=== PATIENT | male | born 1965 | race Caucasian/White ===

== ENCOUNTER 2024-08-27 10:21 | Outpatient (REF) | payer OTHER, SELFPAY ==
--- NOTE | ~2024-08-27 | US_ITS ---
CLINICAL HISTORY: PVD Arterial duplex ultrasound bilateral lower extremity Comparison: None Findings: Right peroneal artery is not seen. Otherwise continuous, pulsatile flow with normal waveforms from common femoral arteries through the posterior tibial and dorsalis pedis arteries. No focal stenosis, aneurysm or occlusion identified. Velocities are within normal range. IMPRESSION: 1. Possible right peroneal artery occlusion. 2. Otherwise, no evidence of arterial insufficiency to the bilateral lower extremities. This document has been electronically signed by: Bárbara Rajput MD on 08/27/2024 14:30:05
== END 2024-08-27 10:22 | disposition home or self-care (01) ==
LOC: HO.US 10:21
PROVIDERS: PCP Internal Medicine; Visit Provider Psychiatry & Neurology Neurology
DX: I73.9 Peripheral vascular disease, unspecified (principal)
CPT/HCPCS: 93925

== ENCOUNTER → 2024-08-27 10:34 | Outpatient (BNV) | payer OTHER, SELFPAY | PROVIDERS: PCP Internal Medicine; Visit Provider Radiology Diagnostic Radiology | DX: I73.9 Peripheral vascular disease, unspecified (principal) | CPT/HCPCS: 93925 ==

== ENCOUNTER 2024-10-15 12:58 | Outpatient (AMB) | payer OTHER, SELFPAY ==
--- OUTSIDE RECORDS SUMMARY | 2024-10-15 13:29 | XMS_ITS | Clinical Summary ---
Author Organization 175 [facility] Address [address] [place] [address] Phone Care Team Providers Care Biology Laboratory Assistant Name Role Phone Josefina Tamayo MD Primary Care Provider [phone] Allergies No known active allergies Medications aspirin 81 mg EC tablet Take 1 tablet (81 mg total) by mouth 1 (one) time each day. 08/13/2019 Active atorvastatin (LIPITOR) 40 mg tablet Take 1 tablet (40 mg total) by mouth 1 (one) time each day. 05/28/2023 Active pen needle, diabetic 29 gauge x 1/2 needle 12/16/2021 Active blood-glucose meter misc Use daily for testing glucose. 08/13/2019 Active econazole nitrate 1 % cream Apply locally twice a day 10/12/2022 04/22/19 26 Active glucose blood test strip Inject 1 each into the skin. 08/13/2019 Active hydrocortisone 2.5 % cream 08/17/2022 Active insulin glargine (Lantus Solostar U-100 Insulin) 100 unit/mL (3 mL) injection pen Inject under the skin. 07/12/2021 Active insulin NPH human isophane (NovoLIN N NPH U-100 Insulin) 100 unit/mL injection 07/12/2021 Active FREESTYLE LANCETS MISC 1 lancet twice a day for checking sugar,intrade rmal 08/13/2019 Active lisinopriL (PRINIVIL,ZESTR IL) 20 mg tablet Take 1 tablet (20 mg total) by mouth 1 (one) time each day. 12/20/2022 Active metFORMIN XR (GLUCOPHAGE-XR) 750 mg 24 hr tablet Take 1 tablet (750 mg total) by mouth 2 (two) times a day. 08/23/2020 Active amLODIPine (NORVASC) 5 mg tablet Take 1 tablet (5 mg total) by mouth 1 (one) time each day. 07/30/2023 Active blood sugar diagnostic (FreeStyle Lite Strips) test strip Place 1 each on the skin daily. 03/21/2023 Active senna-docusate (PERICOLACE) 8.6-50 mg per tablet Take 1 tablet by mouth 1 (one) time each day. 90 each 2 02/26/2024 Active Ozempic 0.25 mg or 0.5 mg (2 mg/3 mL) injection pen Inject 0.5 mg under the skin. 11/28/2023 Active diclofenac (CATAFLAM) 50 mg tablet 05/03/2024 Active Active Problems Problem Noted Date Diagnosed Date Chronic midline low back pain with bilateral sci atica 10/06/2021 Assessment & Plan (05/07/2024 12:48 PM EST): Mr. Sandoval continues to complain of low back pain, with left buttock pain and bilateral lateral and posterior calf pain. He has occultly with the right upper extremity and always has to lead with the left leg when climbing stairs. He does admit that the right leg is better than it was last time I saw him. On exam today he is neurologically intact with good strength to confrontation including the right iliopsoas. I had previously reviewed his MRI of the lumbar spine with Dr. Eason who said that there was nothing that she could do surgically that would be likely to make him better. 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 I told him that this was likely related to chronic degenerative changes and his diabetes or hypertension but that there was no role for surgery. He asked what could be done and I did say that he might get some benefit from seeing neurology in consultation. Dr. Strinegr performed his EMG and we will refer Mr. Sandoval to him. He can follow up with us in the future on an as needed basis. Assessment & Plan (03/05/2024 3:06 PM EST): Mr. Sandoval describes 5 years of low back pain in 2 to 3 years of leg pain. He has pain in the left buttock and in both calves both laterally and posteriorly. He takes diclofenac with some relief. He has a particularly difficult time climbing stairs, having to lead with the left while leaning on his right side and pulling himself up with the banister. He does have some weakness in the right iliopsoas graded at 4- out of 5. His MRI of the lumbar spine shows disc desiccation and loss of disc height at L3-4 with effacement of the right lateral recess and possible mass effect on the budding right L4 nerve root. There was also bilateral foraminal stenosis. There were mild degenerative changes in the lower lumbar spine. At this point he is going to go for chiropractic treatment and he did except the prescription for physical therapy. I counseled him on weight loss and explained that that would impact his low back health. We talked about acupuncture and yoga as other reasonable conservative modalities. I told him I would call him after reviewing his MRI with Dr. Eason. Diabetes mellitus type 2, un complicated ([facility] V24, [facility] V28) 12/21/2017 Hyperlipidemia 12/21/2017 Hypertension 10/19/2017 Obesity, Class III, BMI 40-49.9 (morbid obesity) 10/19/2017 Vitamin D deficiency 09/06/2017 Encounters Date Type Department Care Team Description 10/15/2024 Lab Requisition [facility] - Main Lab [address] [facility] [place] [address] Shaheed Cavanaugh MD Benign prostatic hyperplasia with lower urinary tract symptoms 09/15/2024 Telephone Internal Medicine - [place] [address] [facility] [address] [place] [address] Josefina Tamayo MD [place]: Lab results 09/04/2024 7:27 AM EDT - 09/04/2024 11:59 PM EDT Hospital Encounter [facility] Ultrasound [address] [place] [id number] Right upper quadrant abdominal swelling, mass and lump Discharge Disposition: Home or Self Care 08/26/2024 3:00 PM EDT Office Visit Internal Medicine - [place] [address] [facility] [address] [place] [address] Josefina Tamayo MD Right upper quadrant abdominal swelling, mass and lump (Primary Dx); Primary hypertension; Type 2 diabetes mellitus without complication, with long-term current use of insulin ([facility] V24, [facility] V28); Mixed hyperlipidemia 08/15/2024 Telephone Internal Medicine - [place] [address] [facility] [address] [place] [address] Anabelle Avery RN from Last 3 Months Surgical History Surgery Date Site/Laterality Comments ABDOMINAL SURGERY PROCEDURE: HISTORICAL ABDOMINAL SURGERY GALLBLADDER SURGERY KIDNEY STONE SURGERY Medical History Medical History Date Comments Diabetes mellitus type 2, uncomplicated ([facility] V24, [facility] V28) 12/21/2017 DX:Diabetes mellitus type 2, uncomplicated ([facility]) Hyperlipidemia 12/21/2017 DX:Hyperlipidemi a Hypertension 10/19/2017 DX:Hypertension Obesity, Class III, BMI 40-4 9.9 (morbid obesity) 10/19/2017 DX:Obesity, Class III, BMI 4 0-49.9 (morbid obesity) ([facility]) Vitamin D deficiency 09/06/2017 DX:Vitamin D deficiency Kidney stones Family History Medical History Relation Name Comments Stroke Brother Relation Name Status Comments Brother Social History Tobacco Use Types Packs/Day Years Used Date Smoking Tobacco: Never Smokeless Tobacco: Never Sex and Gender Information Value Date Recorded Sex Assigned at Male 08/27/2024 2:41 PM EDT Legal Sex Male 11:48 AM EST Gender Identity Male 08/27/2024 2:41 PM EDT Sexual Orientation Straight 08/27/2024 2: 41 PM EDT Obstetrics History Last Filed Vital Signs Vital Sign Reading Time Taken Comments Blood Pressure 128/66 08/26/2024 3:27 PM EDT Pulse 82 08/26/2024 3:27 PM EDT Temperature 36.2 C (97.1 F) 08/26/2024 3:27 PM EDT Respiratory Rate - - Oxygen Saturation 96% 08/26/2024 3:27 PM EDT Inhaled Oxygen Concentration - - Weight 136 kg (300 lb) 08/26/2024 3:27 PM EDT Height 182.9 cm (6') 05/07/2024 10:48 AM EST Body Mass Index 40.69 05/07/2024 10:48 AM EST Plan of Treatment Upcoming Encounters Date Type Department Care Team (Late st Contact Info) Description 01/19/2025 11:30 AM EDT Office Visit Internal Medicine - [place] [address] [facility] [address] [place] [address] Josefina Tamayo MD [address] [facility] [address] [place] [address] Health Maintenance Due Date Last Done Comments Diabetes: Annual Foot Exam 1974 DTaP,Tdap,and Td Vaccines (1 - Tdap) 12/15/1983 Hepatitis B Vaccines (1 of 3 - 19+ 3-dose series) 12/15/1983 Pneumococcal Vaccine: 50+ Years (1 of 2 - PCV) 12/15/1983 Pneumococcal Vaccine: Pediatrics (0 to 5 Years) and At-Risk Patients (6 to 64 Years) (1 of 2 - PCV) 12/15/1983 Zoster Vaccines (1 of 2) 2014 Colorectal Cancer Screening: Colonoscopy 03/25/2022 Depression Screening 03/25/2022 HIV Screening 03/25/2022 Hepatitis C Screening 03/25/2022 Social Influencers of Health Screening 03/25/2022 COVID-19 Vaccine ( season) 2023 Diabetes: Annual Retina Eye Exam 03/07/2024 03/07/2023, 03/07/2023 Influenza Vaccine (Season Ended) 2024 Diabetes: Blood Sugar Control Test (HGBA1C) 02/28/2025 08/28/2024, 08/23/2023, 10/20/2022, Additional history exists Diabetes: Annual Urine Albumin-Creatinine Ratio (uACR) 08/28/2025 08/28/2024, 08/23/2023, 01/26/2022, Additional history exists Diabetes: Annual GFR (Glomerular Filtration Rate) 08/28/2025 08/28/2024, 02/28/2024, 08/23/2023 Hypertension/CHF/CAD Annual BMP Blood Test 08/28/2025 08/28/2024, 02/28/2024, 08/23/2023 Cholesterol Screening (Lipid Panel) 08/28/2029 08/28/2024, 01/26/2022 RSV Immunization Adult Patients (1 - 1-dose 75+ series) 12/15/2039 HIB Vaccines Aged Out No longer eligi ble based on patient's age to complete this topic HPV Vaccines Aged Out No longer eligi ble based on patient's age to complete this topic Hepatitis A Vaccines Aged Out No long er eligible based on patient's age to complete this topic IPV Vaccines Aged Out No longer eligi ble based on patient's age to complete this topic MMR Vaccines Aged Out No longer eligi ble based on patient's age to complete this topic Meningococcal ACWY Vaccine Aged Out N o longer eligible based on patient's age to complete this topic Meningococcal B Vaccine Aged Out No l onger eligible based on patient's age to complete this topic RSV Immunization Patients Under 20 months Aged Out No longer eligible based on patient's age to complete this topic Varicella Vaccines Aged Out No longer eligible based on patient's age to complete this topic Procedures Procedure Name Priority Date/Time Associated Diagnosis Comments US ABDOMEN LIMITED Routine 09/04/2024 7: 46 AM EDT Right upper quadrant abdominal swelling, mass and lump CBC WITH AUTO DIFFERENTIAL Routine 08/28/2024 9:42 AM EDT Primary hypertension COMPREHENSIVE METABOLIC PANEL Routine 08/28/2024 9:42 AM EDT Primary hypertension CBC AND DIFFERENTIAL Routine 08/28/2024 9:42 AM EDT Primary hypertension HEMOGLOBIN A1C Routine 08/28/2024 9:42 AM EDT Primary hypertension Right upper quadrant abdominal swelling, mass and lump Type 2 diabetes mellitus without complication, with long-term current use of insulin ([facility] V24, [facility] V28) Mixed hyperlipidemia VITAMIN B12 Routine 08/28/2024 9:42 AM EDT Primary hypertension Right upper quadrant abdominal swelling, mass and lump Type 2 diabetes mellitus without complication, with long-term current use of insulin ([facility] V24, [facility] V28) Mixed hyperlipidemia LIPID PANEL WITH REFLEX TO DIRECT LDL Routine 08/28/2024 9:42 AM EDT Primary hypertension Right upper quadrant abdominal swelling, mass and lump Type 2 diabetes mellitus without complication, with long-term current use of insulin ([facility] V24, [facility] V28) Mixed hyperlipidemia MICROALBUMIN CREATININE URINE RATIO Routine 08/28/2024 9:42 AM EDT Primary hypertension Right upper quadrant abdominal swelling, mass and lump Type 2 diabetes mellitus without complication, with long-term current use of insulin ([facility] V24, [facility] V28) Mixed hyperlipidemia EXTERNAL ULTRASOUND REPORT 08/27/2024 EXTERNAL NEUROLOGY REPORT Routine 07/17/2024 1:16 PM EDT DIABETES EYE EXAM Routine 03/07/2023 from Last 3 Months or Most Recently Relevant to Health Maintenance Results * US Abdomen Limited (09/04/2024 7:46 AM EDT) Anatomical Region Laterality Modality Body Ultrasound 09/05/2024 8:19 AM EDT Impressions 09/05/2024 8:21 AM EDT Limited study. No large abnormality demonstrated. However, further evaluation may be appropriate if there are suspicious findings on physical exam -------- FINAL REPORT -------- Dictated By: Xavier Clancy Dictated Date: 09/05/2024 08:19 ET Assigned Physician: Xavier Clancy Reviewed and Electronically Signed By: Xavier Clancy Signed Date: 09/05/2024 08:21 ET Workstation ID: [id number] Transcribed By: Self Edit Transcribed Date: 09/05/2024 08:19 ET Narrative 09/05/2024 8:21 AM EDT EXAMINATION: US , RIGHT ABDOMINAL WALL CLINICAL INFORMATION: Palpable abnormality right upper quadrant. COMPARISON: None. TECHNIQUE: High-frequency linear transducer examination with attention to the area of clinical concern The examination is targeted to the area of palpable concern in the right upper quadrant abdominal wall. FINDINGS: QUALITY: Significantly limited exam. Specifically habitus limits assessment. The abdominal wall fascia and bowel are not well evaluated. The integrity of the abdominal wall cannot be determined. There is no suspicious mass. No peristalsing bowel. No suspicious collection. Procedure Note Xavier Clancy MD - 09/05/2024 EXAMINATION: US , RIGHT ABDOMINAL WALL CLINICAL INFORMATION: Palpable abnormality right upper quadrant. COMPARISON: None. TECHNIQUE: High-frequency linear transducer examination with attention to the area ofclinical concern The examination is targeted to the area of palpable concern in the rightupper quadrant abdominal wall. FINDINGS: QUALITY: Significantly limited exam. Specifically habitus limits assessment. The abdominal wall fascia andbowel are not well evaluated. The integrity of the abdominal wall cannotbe determined. There is no suspicious mass. No peristalsing bowel. No suspicious collection. IMPRESSION: Limited study. No large abnormality demonstrated. However, further evaluation may be appropriate if there are suspiciousfindings on physical exam -------- FINAL REPORT -------- Dictated By: Xavier Clancy Dictated Date: 09/05/2024 08:19 ET Assigned Physician: Xavier Clancy Reviewed and Electronically Signed By: Xavier Clancy Signed Date: 09/05/2024 08:21 ET Workstation ID: [id number] Transcribed By: Self Edit Transcribed Date: 09/05/2024 08:19 ET us Josefina Tamayo MD [facility] US PROCEDURES Final Result * Lipid panel with reflex to direct LDL (08/28/2024 9:42 AM EDT) Cholesterol 103 0 - 200 mg/dL LAB CHEMISTRY METHOD 08/28/2024 2:05 PM EDT [facility] Triglycerides 111 0 - 150 mg/dL LAB CHEMISTRY METHOD 08/28/2024 2:05 PM EDT [facility] HDL 42 >=40 mg/dL LAB CHEMISTRY METHOD 08/28/2024 2:05 PM EDT [facility] LDL Calculated 39 0 - 100 mg/dL LAB CHEMISTRY METHOD 08/28/2024 2:05 PM T [facility] VLDL Cholesterol Gallo 22.2 mg/dL LAB CHEMISTRY METHOD 08/28/2024 2:05 PM EDT [facility] Non HDL Chol. (LDL+VLDL) 61 <145 mg/dL LAB CHEMISTRY METHOD 08/28/2024 2:05 PM EDT [facility] Chol/HDL Ratio 2.5 0.0 - 4.4 LAB CHEMISTRY METHOD 08/28/2024 2:05 PM EDT [facility] Blood Venous blood specimen / Unknown Venipuncture / Unknown 08/28/2024 9:42 AM EDT 08/28/2024 9:42 AM EDT us Josefina Tamayo MD LAB BLOOD ORDERABLES Final Res ult [facility] [address] [place] [address], [place] [phone] * (ABNORMAL) CBC auto differential (08/28/2024 9:42 AM EDT) WBC 7.8 4.8 - 10.8 K/mcL LAB HEMETOLOGY METHOD 08/28/2024 12:37 PM EDT [facility] RBC 4.90 4.50 - 5.50 M/mcL LAB [facility]OLOG[facility] Hemoglobin 15.4 13.5 - 17.5 g/dL LAB HEMETOLOGY METHOD 08/28/2024 12:37 PM EDT [facility] Hematocrit 46.8 42.0 - 54.0 % LAB HEMETOLOGY METHOD 08/28/2024 12:37 PM EDT [facility] MCV 94.7 79.0 - 98.0 FL LAB HEMETOLOGY METHOD 08/28/2024 12:37 PM [facility] MCH 31.2 27.0 - 32.0 pcg LAB HEMETOLOGY METHOD 08/28/2024 12:37 PM EDT [facility] MCHC 32.9 32.0 - 37.0 g/dL LAB HEMETOLOGY METHOD 08/28/2024 12:37 PM EDT [facility] RDW 13.8 11.0 - 15.0 % LAB HEMETOLOGY METHOD 08/28/2024 12:37 PM EDT [facility] Platelets 213 130 - 400 K/mcL LAB HEMETOLOGY METHOD 08/28/2024 12:37 PM EDT [facility] MPV 10.1 7.0 - 11.0 FL LAB HEMETOLOGY METHOD 08/28/2024 12:37 PM EDT [facility] NRBC 0.0 <1.0 % LAB HEMETOLOGY METHOD 08/28/2024 12:37 PM [facility] NRBC Absolute 0.00 <0.10 K/mcL LAB HEMETOLOGY METHOD 08/28/2024 12:37 PM EDT [facility] Neutrophils Relative 63.1 % LAB HEMETOLOGY METHOD 08/28[facility]2024 12[facility] Lymphocytes Relative 27.1 % LAB HEMETOLOGY METHOD 08/28/2024 12:37 PM [facility] Monocytes Relative 7.5 % LAB HEMETOLOGY METHOD 08/28/2024 12:37 PM [facility] Eosinophils Relative 1.4 % LAB HEMETOLOGY METHOD 08/28/2024 12:[facility] Basophils Relative 0.4 % LAB HEMETOLOGY METHOD 08/28/2024 12:37 PM EDT [facility] Immature Granulocytes Relative 0.5 % LAB HEMETOLOGY METHOD 08/28[facility]2024 12:[facility] Neutrophils Absolute 4.89 1.50 - 7.00 K/mcL LAB HEMETOLOGY METHOD 08/28/2024 12:37 PM EDT [facility] Lymphocytes Absolute 2.10 1.00 - 5.00 K/mcL LAB HEMETOLOGY METHOD 08/28/2024 12:37 PM EDT [facility] Monocytes Absolute 0.58 0.20 - 1.00 K/mcL LAB HEMETOLOGY METHOD 08/28/2024 12:37 PM EDT [facility] Eosinophils Absolute 0.11 0.00 - 0.50 K/mcL LAB HEMETOLOGY METHOD 08/28/2024 12:37 PM EDT [facility] Basophils Absolute 0.03 0.00 - 0.20 K/mcL LAB HEMETOLOGY METHOD 08/28/2024 12:37 PM EDT [facility] Immature Granulocytes Absolute 0.04(H) 0.00 - 0.03 K/mcL LAB HEMETOLOGY METHOD 08/28/2024 12:37 PM EDT [facility] Blood Venous blood specimen / Unknown Venipuncture / Unknown 08/28/2024 9:42 AM EDT 08/28/2024 9:42 AM EDT us Josefina Tamayo MD LAB BLOOD ORDERABLES Final Res ult [facility] [address] [place] [address], * Microalbumin creatinine urine ratio (08/28/2024 9:42 AM EDT) Creatinine, Urine 114.0 mg/dL LAB CHEMISTRY METHOD 08/28/2024 1:53 PM EDT [facility] Microalb, Ur 5.6 0.0 - 29.0 mg/L LAB CHEMISTRY METHOD 08/28/2024 1:53 PM EDT [facility] Microalb/Creat Ratio 5 <30 mg/g creat LAB CHEMISTRY METHOD 08/28/2024 1:53 PM EDT [facility] Urine Urine specimen obtained by clean catch procedure / Unknown Non-blood Collection / Unknown 08/28/2024 9:42 AM EDT 08/28/2024 9:42 AM EDT Josefina Tamayo MD LAB URINE ORDERABLES Final Res ult Performing Organization Address [facility]/ZIP Co de Phone Number [facility] [address] [place] [address], [place] [phone] * Hemoglobin A1c (08/28/2024 9:42 AM EDT) Hemoglobin A1C 5.8 <6.5 % LAB CHEMISTRY METHOD 08/28/2024 3:11 PM EDT [facility] Mean Bld Glu Estim. 120 mg/dL LAB CHEMISTRY METHOD 08/28/2024 3:11 PM EDT [facility] Blood Venous blood specimen / Unknown Venipuncture / Unknown 08/28/2024 9:42 AM EDT 08/28/2024 9:42 AM EDT Josefina Tamayo MD LAB BLOOD ORDERABLES Final Res ult Performing Organization Address [facility] Co de Phone Number [facility] [address] [place] [address], [place] [phone] * Vitamin B12 (08/28/2024 9:42 AM EDT) Pathologist [facility] Vitamin B-12 561 250 - 900 pcg/mL LAB CHEMISTRY METHOD 08/28/2024 2:05 PM EDT [facility] Blood Venous blood specimen / Unknown Venipuncture / Unknown 08/28/2024 9:42 AM EDT 08/28/2024 9:42 AM EDT Josefina Tamayo MD LAB BLOOD ORDERABLES Final Res ult Performing Organization Address City/[facility]/ZIP Co de Phone Number [facility] [address] [place] [address], [place] [phone] * Comprehensive metabolic panel (08/28/2024 9:42 AM EDT) Sodium 139 133 - 145 mmol/L LAB CHEMISTRY METHOD 08/28/2024 2:05 PM [facility] Potassium 5.2 3.5 - 5.5 mmol/L LAB CHEMISTRY METHOD 08/28/2024 2:05 PM [facility] Comment:Hemolysis present Chloride 108 96 - 110 mmol/L LAB CHEMISTRY METHOD 08/28/2024 2:05 PM [facility] CO2 23 21 - 32 mmol/L LAB CHEMISTRY METHOD 08/28/2024 2:05 PM [facility] Anion Gap 8 3 - 11 LAB CHEMISTRY METHOD 08/28/2024 2:05 PM [facility] Glucose 90 70 - 100 mg/dL LAB CHEMISTRY METHOD 08/28/2024 2:05 PM [facility] BUN 12 5 - 25 mg/dL LAB CHEMISTRY METHOD 08/28/2024 2:05 PM [facility] Creatinine 0.70 0.70 - 1.30 mg/dL LAB CHEMISTRY METHOD 08/28/2024 2:05 PM [facility] eGFR 106 >=60 mL/min/1. 73m2 LAB CHEMISTRY METHOD 08/28/2024 2:05 PM [facility] Comment:Calculation based on the Chronic Kidney Disease Epidemiology Collaboration (CKD-EPI) equation refit without adjustment for race. BUN/Creatinine Ratio 17.1 LAB CHEMISTRY METHOD 08/28/2024 2:05 PM [facility] Calcium 8.8 8.5 - 10.5 mg/dL LAB CHEMISTRY METHOD 08/28/2024 2:05 PM [facility] AST (SGOT) 30 10 - 42 unit/L LAB CHEMISTRY METHOD 08/28/2024 2:05 PM EDT [facility] Comment:Hemolysis present ALT (SGPT) 31 10 - 60 unit/L LAB CHEMISTRY METHOD 08/28/2024 2:05 PM EDT [facility] Alkaline Phosphatase 72 42 - 121 unit/L LAB CHEMISTRY METHOD 08/28/2024 2:05 PM EDT [facility] Total Protein 7.0 6.0 - 8.0 g/dL LAB CHEMISTRY METHOD 08/28/2024 2:05 PM EDT [facility] Albumin 3.7 3.2 - 5.0 g/dL LAB CHEMISTRY METHOD 08/28/2024 2:05 PM EDT [facility] Total Bilirubin 0.6 0.0 - 1.4 mg/dL LAB CHEMISTRY METHOD 08/28/2024 2:05 PM EDT [facility] Blood Venous blood specimen / Unknown Venipuncture / Unknown 08/28/2024 9:42 AM EDT 08/28/2024 9:42 AM EDT Josefina Tamayo MD LAB BLOOD ORDERABLES Final Res ult [facility] [address] [place] [address], [place] [phone] * External Ultrasound Report (08/27/2024) Anatomical Region Laterality Modality Ultrasound Provider Spencer Onbase IMG US PROCEDURES Final Result * External Neurology Report (07/17/2024 1:16 PM EDT) Historical Provider NEUROLOGY ORDERABLES Maryellen l Result * Hm Diabetes Eye Exam (03/07/2023) Diabetes: Annual Retina Eye Exam abstracted Historical Provider HEALTH MAINTENANCE Final Result from Last 3 Months or Most Recently Relevant to Health Maintenance [place] [address] PLAN Care Teams Biology Laboratory Assistant Relationship Specialty Start Date End Date Josefina Tamayo MD [address] [address] PCP - General Internal Medicine 02/16/18
--- NOTE | 2024-10-15 13:31 | A.OFFVIS_ITS ---
Intake Visit Reasons: 3M / Diabetic PN , ? PAD Allergies No Known Allergies Allergy (Verified 10/14/24 11:44) Medication List - Last Reconciled 10/15/24 by Shaheed Stringer MD amlodipine 5 mg PO DAILY aspirin 81 mg PO DAILY atorvastatin 40 mg PO DAILY diclofenac potassium 50 mg PO BID insulin glargine (Lantus Solostar U-100 Insulin) units subcut lisinopril 30 mg PO DAILY metformin ER 750 mg PO BID pen needle, diabetic As directed semaglutide (Ozempic) mg subcut HPI Comments Details: This is a 58-year-old morbidly obese [place] man with a history of type 2 diabetes for the last 10 years, hypertension and hyperlipidemia who has had some chronic low back pain.? He also complains of pain in both calves when he takes to stand up and walk.? Mostly the pain goes away when he is sitting.? He has difficulty climbing stairs and has been using a cane.? He's had no falls.? MRI of the lumbar spine shows degenerative disc disease with a small disc herniation on the right side at L3-4.? Nerve conduction EMG study on 04/30/24 showed diffuse sensorimotor peripheral neuropathy in both lower extremities with EMG showing chronic distal neuropathic changes.? He's been seen by neurosurgery.? He tried physical therapy briefly.? He does not have any numbness in his feet.? No trouble and bladder control.? His sugars under fairly good control at this point with the last A1c of 6.3. 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 Pain jaime snot occur at rest . Most of the pain is in the calves and legs and especially on going up stairs. [facility] Medical History (Updated 10/15/24 @ 13:33 by Shaheed Stringer MD) Morbid obesity Low back pain Hypertension Hyperlipidemia Diabetes mellitus Social History (Updated 10/14/24 @ 11:44 by Leilani Aponte MA) Alcohol intake: never Patient Tobacco Use Status: Never used Tobacco Physical Exam Neuro Other: Abnormal neurological findings:??Bilateral weakness in dorsiflexors , evertors and EDB and EHL 4to 4+/5 with areflexia. Proximal strength is normal. Mild blunting of vibration in toes. ?Peripheral pulses are not palpable.?Mental Status:??alert and oriented X 3,?Normal attention, orientation, memory and affect.?Cranial Nerves:??Pupils are equal, round and reactive to light. Fundoscopy shows normal disc bilaterally. E xternal occular muscles are intact. Visual granados are full, no ptosis. Face is symmetrical, no facial weakness or droop. Facial sensations are normal. Tongue protrudes in midline. Palate elevates symmetrically. Shoulder shrugging is normal..?Motor Examination:??distal weakness in the lower extremities as above.? Otherwise Normal muscle tone, bulk and strength,?No atrophy or fasciculations,?No drift of the extended upper extremities,?Deep tendon reflexes are 0-1+?,?Plantars are flexor?.?Motor Strength:?Proximal Muscles (out of 5):5 Distal Muscles (out of 5):5Neck Flexors (out of 5):5Neck Extensors (out of 5):5 Deltoid (out of 5):5Biceps (out of 5):5Triceps (out of 5):5Serratus Anterior (out of 5):5Wrist Extensors (out of 5):5APB (out of 5):5Finger Spread (out of 5):5Ileopsoas (out of 5):5Quadriceps (out of 5):5Hamstrings (out of 5):5Tibialis Anterior (out of 5):4Peronei (out of 5):4EDB (out of 5):4Gastrocnemius (out of 5):5Straight Leg Raising:??90 degrees.?Sensory Exam:??Normal light touch, temperature, pinprick, mild impairment of vibration in the toes. normaljoint- position sensations?,?Rhomberg sign is absent.?Coordination:??no ataxia,?no titubation,?[id number], [id number] test and rapid alternating movements were normal.?Gait Exam:??walks with a cane with a slight limp and waddle side to side.?Cerebellar Signs:??Xxybhx-go-qnot and jqmw-fc-[id number] is normal,?no dysdiadochokinesia?.?Extrapyramidal System:??No tremor, rigidity with normal facial expressions,?No bradykinesia, no bradyphrenia. Normal arm swing and posture. No propulsion or retropulsion.?Speech:??Normal,?no dysphasia or dysarthria..? Mini Mental Status Exam: Level of Consciousness:??Alert.?Orientation:??Knows correct year, month, date, day and season,?Knows correct city, county and state. Knows correct location and floor.?Registration:??Able to register 3 objects.?Attention:??Serial 7's performed accurately.?Recall:??Able to recall 3 out of 3 objects.?Language:??Normal spontaneous speech, fluency, repetition,naming, comprehension, reading and writing.?Total Score:??30/30.? General Examination: GENERAL APPEARANCE:??normal,?in no acute distress.?HEAD:??normocephalic,?atraumatic.?EYES:??sclera non- icteric,?conjunctiva clear.?EARS:??auditory canal clear,?tympanic membrane intact, clear.?NOSE:??no lesions.?ORAL CAVITY:??gums normal,?mucosa moist,?no lesions.?THROAT:??clear.?NECK/THYROID:??no cervical lymphadenopathy,?thyroid normal,?neck supple, full range of motion,?no carotid bruit.?SKIN:??no rashes,?no significant birthmarks.?HEART:??S1, S2 normal,?no murmurs.?LUNGS:??clear anteriorly and posteriorly.?CHEST:??no gross rib deformity,?clear to auscultation.?BACK:??normal exam of spine.?EXTREMITIES:??no edema.?PERIPHERAL PULSES:??normal except right dorsalis pedis absent.? Assessment & Plan Assessment & Plan (1) Diabetic peripheral neuropathy: Code(s): E11.42 - Type 2 diabetes mellitus with diabetic polyneuropathy Category: Medical Plan continue current meds. Walk 20 minutes daily. Massage of legs. B complex. Diabetes control. Coding Level of Care Code Est Pt Level 4 (99489) Diagnoses Diabetic peripheral neuropathy E11.42
== END 2024-10-15 13:49 | disposition home or self-care (01) ==
LOC: HO.HSM 12:59
PROVIDERS: PCP Internal Medicine; Visit Provider Psychiatry & Neurology Neurology
DX: E11.42 Type 2 diabetes mellitus with diabetic polyneuropathy (principal)
CPT/HCPCS: 99214

== ENCOUNTER → 2024-10-15 12:58 | Outpatient (BNVA) | payer OTHER, SELFPAY | PROVIDERS: PCP Internal Medicine; Visit Provider Psychiatry & Neurology Neurology | DX: E11.42 Type 2 diabetes mellitus with diabetic polyneuropathy (principal) | CPT/HCPCS: 99212 ==